=== PATIENT | female | born 1990 | race African-American/Black ===

== ENCOUNTER 2017-11-15 02:33 | Emergency (ER) | payer SELFPAY ==
--- NOTE | 2017-11-15 03:08 | ED Physician Documentation ---
Headache - HISTORIAN Historian: patient - HPI Stated Complaint: Headache with nausea and vomiting Chief Complaint: Headache Additional Information: Intermittent headache to the left temperal area and radiates into your neck. No precipitating fctor noted. Noise or light, smells make it worse. Throbbign ramírez, makes her nauseated. Has no been able to drink or eat anything for two days. No previous problems with headaches in the past. Onset: days ago (5 days) New Gradual Onset: Yes Exposure To: none Severity: moderate Quality: pain, throbbing, sharp Associated Symptoms: denies: fever, chills Preceding Symptoms: visual disturbance. denies: scotoma Exacerbated By: light, noise, movement - ROS NEURO/PSYCH: denies: confusion EYES/ENT: denies: sore throat, difficulty swallowing, sinus pain CVS/RESP: denies: chest pain, shortness of breath, cough GI/: other (constipation). denies: abdominal pain - PAST HX Medical History: no pertinent history Surgical History: other (c section time 3) Immunizations: referred to PCP Allergies/Adverse Reactions: Allergies Allergy/AdvReac Type Severity Reaction Status Date / Time No Known Allergies Allergy Verified 11/15/17 02:50 Home Medications: Ambulatory Orders Medication Instructions Recorded Acetaminophen [Tylenol] 650 mg PO Q4 PRN 11/15/17 - SOCIAL HX Smoking History: less than 1 pack/day (05/18 ppd) Alcohol Use: none Drug Use: none - Family HX Family History: migraine headaches (mother) - VITAL SIGNS Vital Signs: Vital Signs Temp Pulse Resp BP Pulse Ox 97.3 F L 76 16 135/68 99 11/15/17 02:35 11/15/17 02:35 11/15/17 02:35 11/15/17 02:35 11/15/17 02:35 - REVIEWED ASSESSMENTS Nursing Assessment Reviewed: Yes Vitals Reviewed: Yes Progress - Progress Progress: 0400 Patient states taht she is feeling much better at this time. ED Results Lab/Radiology - Lab Results Lab Results: Lab Results 11/15/17 11/15/17 03:38 03:38 WBC 7.60 K/ul K/ul (4.00-12.00) RBC 3.79 M/ul L M/ul (3.90-5.20) Hgb 11.2 g/dL L g/dL (12.0-16.0) Hct 33.7 % L % (34.5-46.5) MCV 89.0 fl fl (80.0-100.0) MCH 29.5 pg pg (28.0-34.0) MCHC 33.1 g/dL g/dL (30.0-36.0) RDW 12.6 % % (11.3-14.3) Plt Count 248 K/mm3 K/mm3 (130-400) Neut % (Auto) 68.9 % % (39.0-79.0) Lymph % (Auto) 23.4 % % (16.0-50.0) Christian % (Auto) 4.2 % % (0.0-11.0) Eos % (Auto) 2.1 % % (0.0-6.8) Baso % (Auto) 0.2 (0.0-1.5) Neut # (Auto) 5.2 # k/uL # k/uL (1.4-7.7) Lymph # (Auto) 1.8 # k/uL # k/uL (0.6-4.0) Christian # (Auto) 0.3 # k/uL # k/uL (0.0-0.9) Eos # (Auto) 0.2 # k/uL # k/uL (0.0-0.6) Baso # (Auto) 0.0 # k/uL # k/uL (0.0-0.5) Reactive Lymphs % 1.1 % % (0.0-5.0) Reactive Lymphs # 0.1 # k/uL # k/uL (0.0-0.8) Sodium 136 mmol/L mmol/L (136-145) Potassium 3.4 mmol/L L mmol/L (3.5-5.1) Chloride 103 mmol/L mmol/L (98-107) Carbon Dioxide 23 mmol/L mmol/L (22-30) BUN 9 mg/dL mg/dL (7-17) Creatinine 0.70 mg/dL mg/dL (0.52-1.04) Estimated Creat Clear 181 Est GFR ( Amer) > 60 (60 - ) Est GFR (Non-Af Amer) > 60 (60 - ) Glucose 92 mg/dL mg/dL (74-106) Calcium 9.5 mg/dL mg/dL (8.4-10.2) Total Bilirubin 0.3 mg/dL mg/dL (0.2-1.3) AST 31 U/L U/L (15-46) ALT 19 U/L U/L (13-69) Alkaline Phosphatase 47 U/L U/L (38-126) Total Protein 8.0 g/dL g/dL (6.3-8.2) Albumin 4.4 g/dL g/dL (3.5-5.0) - Orders Orders: ED Orders Category Date Time Status Place IV Lock 1T Care 11/15/17 03:21 Active CBC/PLATELET/DIFF Routine Lab 11/15/17 03:38 Completed CMP Routine Lab 11/15/17 03:38 Completed URINE HCG Routine Lab 11/15/17 Ordered Acetaminophen [Ofirmev] Med 11/15/17 03:20 Discontinued 500 mg IV NOW ONE Ondansetron HCl Rapdis [Zofran Odt] Med 11/15/17 03:19 Discontinued 4 mg PO NOW ONE Headache Physical Exam - EXAM General Appearance: alert, mild distress EENT: no facial swelling, eyes nml inspection, PERRL. No: tender temporal artery, pain over sinuses Neck: normal inspection, thyroid normal, supple Respiratory: no resp distress, chest non-tender, breath sounds normal. No: wheezes, rales, rhonchi CVS: reg. rate & rhythm, heart sounds nml, murmur Abdomen: non-tender Skin: color nml, no rash Extremitites: non-tender - NEURO/PSYCH Higher Functions: alert, oriented x3, nml speech, mood/affect nml, slow to respond Cranial: nml as tested, no evidence of acute CVA Cerebellar: nml as tested Sensorimotor: motor nml, sensation nml. denies: weakness Discharge Clincal Impression: Headache Qualifiers: Headache type: new daily persistent Qualified Code(s): G44.52 - New daily persistent headache (NDPH) Referrals: Primary Doctor,No [Primary Care Provider] - 2 Days Additional Instructions: Home and rest in a quiet room. Continue to take tylenol or Ibuprofen for the headaches as needed. Try doing some relaxation exercises if you start to have headaches again. To follow-up with your primary care provider. Condition: Stable Decision to Admit: NO Date of Decison to Admit: 11/15/17 Decision Time: 04:10
[2017-11-15] MEDS: ONDANSETRON HCL 4 MG TAB.RAPDIS PO ONE (03:40)
[2017-11-15] MEDS: ACETAMINOPHEN 1,000 MG/100 ML INJ IV ONE (03:45)
[2017-11-15 03:49] LABS: BASOPHILS % 0.2 (0.0-1.5); EOSINOPHILS % 2.1 % (0.0-6.8); MEAN CORPUSCULAR HEMOGLOBIN 29.5 pg (28.0-34.0); MONOCYTES % 4.2 % (0.0-11.0); NEUTROPHILS # 5.2 # k/uL (1.4-7.7)
[2017-11-15 03:53] LABS: eGFR (African) > 60; eGFR (Non-African) > 60
[2017-11-15 04:52] VITALS: BP 117/67
== END 2017-11-15 04:50 | disposition home or self-care (01) ==
LOC: ED 02:33
DX: G44.52 New daily persistent headache (NDPH) (principal)
CPT/HCPCS: 80053; 81025; 85025; A9270; 96374; 99283; S1016

== ENCOUNTER 2018-05-07 17:42 | Emergency (ER) | payer SELFPAY ==
--- NOTE | 2018-05-07 18:10 | ED Physician Documentation ---
General Adult - HISTORIAN Historian: patient - HPI Stated Complaint: leaking Chief Complaint: General Adult Additional Information: Patient, 28 week gestation, presents to ED with a 24 hour history of "fluid leaking". She states she has felt some lower abdominal pressure but no actual contractions. She denies vaginal bleeding. Onset: hours (24) Timing: still present Severity: mild Further Comments: no - ROS CONST: denies: fever EYES/ENT: none CVS/RESP: denies: chest pain, shortness of breath GI/: abdominal pain MS/SKIN/LYMPH: none NEURO/PSYCH: denies: headache - PAST HX Past History: none Other History: none Surgeries/Procedures: none Allergies/Adverse Reactions: Allergies Allergy/AdvReac Type Severity Reaction Status Date / Time No Known Allergies Allergy Verified 05/07/18 18:00 Home Medications: Ambulatory Orders Medication Instructions Recorded Acetaminophen [Tylenol] 650 mg PO Q4 PRN 11/15/17 - SOCIAL HX Smoking History: non-smoker Alcohol Use: none Drug Use: none - FAMILY HX Family History: No - VITAL SIGNS Vital Signs: Vital Signs Temp Pulse Resp BP Pulse Ox 97.9 F 81 14 132/71 100 05/07/18 17:42 05/07/18 17:42 05/07/18 17:42 05/07/18 17:42 05/07/18 17:42 - REVIEWED ASSESSMENTS Nursing Assessment Reviewed: Yes Vitals Reviewed: Yes Progress - Progress Progress: 1800 heart tones could not be found. [address] Funes at [facility], she accepts for transfer. General Adult Physical Exam - PHYSICAL EXAM GENERAL APPEARANCE: no distress EENT: CHARLES NECK: normal inspection, supple RESPIRATORY: no resp distress, chest non-tender, breath sounds normal CVS: reg rate & rhythm, heart sounds normal ABDOMEN: distended. No: tenderness BACK: normal inspection SKIN: warm/dry EXTREMITIES: non-tender NEURO: oriented X3 Discharge Clincal Impression: care in third trimester Referrals: Primary Doctor,No [Primary Care Provider] - 2 Days Condition: Stable Disposition: 01 HOME, SELF-CARE Decision to Admit: NO Date of Decison to Admit: 05/07/18 Decision Time: 18:20
[2018-05-07 18:36] VITALS: BP 124/71
== END 2018-05-07 18:30 | disposition home or self-care (01) ==
LOC: ED 17:42
DX: Z34.93 Encounter for supervision of normal pregnancy, unspecified, third trimester (principal)
CPT/HCPCS: 99285

== ENCOUNTER 2018-06-19 18:09 | Emergency (ER) | payer OTHER ==
--- NOTE | 2018-06-19 18:17 | ED Physician Documentation ---
General Adult - HISTORIAN Historian: patient (emani) - HPI Stated Complaint: syncope last night - fine today Chief Complaint: General Adult Onset: days ago (1) Timing: better Severity: mild Further Comments: yes (She reports last night around 11 pm she took a Ibuprofen from her OBGYN and 1/2 percocet about 1130 she was standing at the sink bathing her new born and she got hot and then felt "weird" then states she woke on the floor and her boyfriend told her she passed out. She has had a few mild headache (she states she has a history of headaches and these were not out of the normal). Denies any symptoms today although she has not taken her Percocet . She reports her post recovery is normal.) - ROS CONST: no problems CVS/RESP: none GI/: none MS/SKIN/LYMPH: none NEURO/PSYCH: headache, fainting. denies: dizziness, numbness, difficulty walking, difficulty with speech, anxiety - PAST HX Past History: other (migraines ) Surgeries/Procedures: other (c section x 5 ) Immunizations: UTD Allergies/Adverse Reactions: Allergies Allergy/AdvReac Type Severity Reaction Status Date / Time No Known Allergies Allergy Verified 06/19/18 18:34 Home Medications: Ambulatory Orders Medication Instructions Recorded Acetaminophen [Tylenol] 650 mg PO Q4 PRN 11/15/17 Ibuprofen [Ibu] 600 mg PO Q8 06/19/18 oxyCODONE HCL/ACETAMINOPHEN 1 each PO Q4 PRN 06/19/18 [Percocet 5-325 mg Tablet] - SOCIAL HX Smoking History: non-smoker Alcohol Use: none Drug Use: none - FAMILY HX Family History: No - VITAL SIGNS Vital Signs: Vital Signs Temp Pulse Resp BP Pulse Ox 124/71 05/07/18 18:33 - REVIEWED ASSESSMENTS Nursing Assessment Reviewed: Yes Vitals Reviewed: Yes General Adult Physical Exam - PHYSICAL EXAM GENERAL APPEARANCE: no distress EENT: eye inspection normal, ENT inspection normal, pharynx normal, no signs of dehydration, CHARLES NECK: normal inspection RESPIRATORY: no resp distress, chest non-tender, breath sounds normal CVS: reg rate & rhythm, heart sounds normal, equal pulses ABDOMEN: soft, normal bowel sounds, no distension SKIN: warm/dry, normal color EXTREMITIES: non-tender, normal range of motion, no evidence of injury, no edema NEURO: oriented X3, CN's nml as tested, motor nml, sensation nml, mood/affect nml, cognition normal Discharge Clincal Impression: Syncope Qualifiers: Syncope type: unspecified Qualified Code(s): R55 - Syncope and collapse Referrals: Primary Doctor,No [Primary Care Provider] - 2 Days Comments: 1. DO not take any further Percocet 2. Increase fluids 3. DO no stand for long periods of time 4. Change position slowly 5. Follow up with OBGYN tomorrow 6. Rest 7. Return to ER for any concerns Condition: Stable Disposition: 01 HOME, SELF-CARE Decision to Admit: NO Date of Decison to Admit: 06/19/18 Decision Time: 18:31
[2018-06-19 18:41] VITALS: BP 121/78
== END 2018-06-19 18:38 | disposition home or self-care (01) ==
LOC: ED 18:09
DX: R55 Syncope and collapse (principal)
CPT/HCPCS: 99282